=== PATIENT | male | born 1995 | race Caucasian/White ===

== ENCOUNTER 2020-07-06 22:06 | Emergency (ER) | payer BC ==
[~2020-07-06] VITALS: Ht 188 cm; Wt 81.6 kg
--- NOTE | 2020-07-06 22:30 | NUR ---
BIBRA C/O HEAD INJ S/P GLF. PT AAOX4. VITAL SIGNS STABLE. RESPIRATIONS EVEN AND UNLABORED. PENDING MD RONQUILLO
--- NOTE | 2020-07-06 23:21 | NUR ---
Patient discharged to home in stable condition. Written and verbal after care instructions given. Patient verbalizes understanding of instruction.Pt ambulatory with a steady gait
[2020-07-06 23:22] VITALS: BP 135/79
== END 2020-07-06 23:22 | disposition home or self-care (01) ==
LOC: ER 22:12
DX: S00.11XA Contusion of right eyelid and periocular area, initial encounter (principal); F11.10 Opioid abuse, uncomplicated; W18.39XA Other fall on same level, initial encounter; Y93.89 Activity, other specified; Y92.89 Other specified places as the place of occurrence of the external cause; Y99.8 Other external cause status
CPT/HCPCS: 70450-TC